=== PATIENT | female | born 1980 | race Caucasian/White ===

== ENCOUNTER 2016-10-08 13:32 | Emergency (ER) ==
[2016-10-08 13:47] VITALS: BP 103/59
[2016-10-08] MEDS ORDERED: NORCO-5 PO ONE (14:49)
--- NOTE | 2016-10-08 14:51 | PROVIDER DOCUMENTATION ---
HPI-Musculoskeletal Pain/Inj - GENERAL Chief Complaint: Extremity Injury Stated Complaint: EXTREMITY INJURY Time Seen by Provider: 10/08/16 14:37 Source: patient - HX OF PRESENT ILLNESS-MUSKULOSKELTAL Nature of Presenting Problem: Pt is 36 y/o F presents to the ED with R ankle pain. Pt states she was moving furniture and twisted ankle. Pt states falling on top of twisted ankle. Pt denies LOC. Quality of Pain: reports: aching Severity in ED: mild Onset/Duration: 24 hours ago Timing: still present, intermittent Modifying Factors: improves with: nothing Any recent injury?: Yes (twisted R ankle ) Locality of Occurance: Home Similar Symptoms Previously?: Yes Recently seen or treated by another doctor?: No - FALL INJURY Location of Pain/Injury: reports: lower extremity (R ankle) Pain Radiation: reports: no radiation Reason for Fall: reports: lost balance Symptoms prior to fall:: reports: none Loss of Consciousness: no loss of consciousness Injury Associated Symptoms: reports: denies symptoms - LOWER EXTREMITY PAIN/INJURY Lower Extremities Pain: ankle: right (pain ) Context / Method of Injury: reports: fell Associated Symptoms: reports: weakness in legs/feet (R ankle). denies: loss of bladder control, loss of bowel control, lower back pain, muscle spasms, numbness in legs/feet, sensory/motor loss, tingling in legs/feet Review of Systems - Adult - REVIEW OF SYSTEMS - ADULT Constitutional: reports: no symptoms reported Eyes: reports: no symptoms reported Ears, Nose, Mouth & Throat: reports: no symptoms reported Cardiovascular: reports: no symptoms reported Respiratory: reports: no symptoms reported Gastrointestinal: reports: no symptoms reported Genitourinary: reports: no symptoms reported Musculoskeletal: reports: other (R ankle). denies: bone pain, joint pain, neck pain Integumentary: reports: no symptoms reported Neurological: reports: no symptoms reported Psychiatric: reports: no symptoms reported Endocrine: reports: no symptoms reported Hematologic/Lymphatic: reports: no symptoms reported Allergic/Immunologic: reports: no symptoms reported All Other Systems: Reviewed and Negative Past History - Adult - PAST MEDICAL HISTORY-ADULT Review of Records: reports: Nursing Assessment Review, Medications Reviewed, Social history reviewed & non-contributory. Major Childhood Illnesses: reports: denies history Cardiovascular: reports: denies history Respiratory: reports: denies history Gastrointestinal: reports: denies history Obstetrical/Gynecological: reports: denies history Genitourinary: reports: denies history Musculoskeletal: reports: denies history Neurological: reports: denies history Psychiatric: reports: anxiety Endocrine/Immune: reports: denies history Other Conditions: reports: denies history - PRIOR SURGERIES/PROCEDURES Surgical/Procedure History: reports: BTL - IMMUNIZATION STATUS Childhood Immunizations: See Nurse Assessment Flu Vaccine: See Nurse Assessment - FAMILY HISTORY Family History: reviewed, not pertinent - SOCIAL HISTORY Smoking: quit less than 1 year, cigarettes Substance Use: denies Living Situation: family Physical Exam-Injury Related - Physical Exam-Injury Related Initial Vital Signs Reviewed: Yes General Appearance: appears well, alert, no apparent distress Eyes: PERRL/EOMI, pink conjunctivae, fundi clear, no AV nicking Head, Ears, Nose, Mouth & Throat: normocephalic/atraumatic, moist mucous membranes, normal ENT inspection, TMs normal, pharynx normal Neck: non-tender, full range of motion, supple, normal inspection Respiratory: chest non-tender, lungs clear, normal breath sounds, no pleuratic chest pain, no respiratory distress, no accessory muscle use Cardiovascular: normal peripheral pulses, regular rate, rhythm, no edema, no gallop, no JVD, no murmur Abdominal Exam: normal bowel sounds, non tender, soft, no organomegaly, no pulsatile mass Lymphatic: no adenopathy Back Exam: normal inspection, no CVA tenderness, no vertebral tenderness Extremity: no calf tenderness, normal capillary refill, swelling (R ankle), tenderness (R ankle), other (painful ROM to R ankle) Progress - PLAN OF CARE/RESULTS Progress/Plan/Lab Results: Orders Category Date Time Status Javed Wrap Application DIRECTED Care 10/08/16 14:48 Active ANKLE COMPLETE RIGHT [RAD] Stat Exams 10/08/16 13:49 Taken Hydrocodone/APAP 5 mg/325 mg [[place]-5] Med 10/08/16 14:49 Discontinued 1 each PO NOW ONE Vital Signs - 24 hr 10/08/16 13:44 Temperature 98 F Pulse Rate 68 Respiratory 18 Rate Blood Pressure 103/59 O2 Sat by Pulse 98 Oximetry - XRAY 1 XRAY: Right XRAY Study: Ankle Impression: Normal XRAY Interpretation: no acute disease Departure - Departure Time of Disposition Order: 14:52 DIAGNOSIS: Right ankle sprain Qualifiers: Encounter type: initial encounter Involved ligament of ankle: unspecified ligament Qualified Code(s): S93.401A - Sprain of unspecified ligament of right ankle, initial encounter Disposition: HOME 01 Certified Medical Emergency: Emergent Condition: Stable Additional Instructions: ED Follow Up Instructions: You have been treated by a care provider in the Emergency Department. These instructions are being provided to you so you can have an understanding of how to care for yourself upon discharge. Upon discharge from the Emergency Department, you are responsible for making arrangements for follow-up care by a physician of your choice. Take all prescribed medications as directed. Return to the Emergency Department immediately for any new or worsening symptoms. You may call the Physician Referral phone number at [phone] to obtain a list of Physicians who are taking new patients. Prescriptions: Hydrocodone/Acetaminophen [[place] 5-325 Tablet] 1 each PO Q6-8H PRN PRN #12 tablet PRN Reason: Pain Referrals: None,PCP [Primary Care Provider] - Attestation - Scribe Verification/Attestation Scribe:: Danitza Beach Acting as Scribe for:: Kaveh Patton Scribe documention review:: This chart was documented by a scribe and accurately reflects the service the provider performed and the decisions made by the provider.
--- NOTE | 2016-10-08 17:55 | Diag Imaging Result Document ---
PROCEDURE NAME: ANKLE COMPLETE RIGHT - 10/08/2016 RIGHT ANKLE, 3 VIEWS: COMPARISON: None. FINDINGS: There is contour deformity, with a bony out cropping at the lateral surface of the lateral malleolus, at the level of the talus. At the lateral talar body, there is another bony out cropping that is also lateral. Likely these are post traumatic or degenerative calcifications rising from the bones. There may be fusion of the posterior subtalar facet. Otherwise, no acute fracture or subluxation. IMPRESSION: Chronic appearing findings. No acute disease.
== END 2016-10-08 15:03 | disposition home or self-care (01) ==
LOC: P.ED 13:32
DX: S93.401A Sprain of unspecified ligament of right ankle, initial encounter (principal); M25.571 Pain in right ankle and joints of right foot; F41.9 Anxiety disorder, unspecified; Z87.891 Personal history of nicotine dependence; X58.XXXA Exposure to other specified factors, initial encounter; Z79.899 Other long term (current) drug therapy
CPT/HCPCS: 99283